=== PATIENT | male | born 1980 | race Caucasian/White ===

== ENCOUNTER 2022-05-16 12:01 | Emergency (ER) | payer MEDICAID ==
[~2022-05-16] VITALS: Ht 160 cm; Wt 72.0 kg
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
--- NOTE | 2022-05-16 12:33 | Diagnostic Imaging Report ---
CLINICAL INDICATION: Patient with pain localized to right hip. EXAM: X-ray of the right hip, AP and frog-leg views. COMPARISON: None. FINDINGS: There is no acute fracture or dislocation. There is hypertrophic bony prominence involving the lateral aspect of the right femoral head/neck junction region. There are small spurs involving the right acetabular region. The remainder of this exam is unremarkable. IMPRESSION: 1: There is no acute fracture or dislocation. 2: There is prominent bony bump involving the lateral aspect of the right femoral head/neck junction region, which may be seen with cam-type defect. 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 Dictated by: Dictated on workstation # [id number]
[2022-05-16 13:35] VITALS: BP 144/83
== END 2022-05-16 13:37 | disposition home or self-care (01) ==
LOC: ER 12:03
DX: M25.551 Pain in right hip (principal); Z28.310 Unvaccinated for COVID-19; W01.0XXA Fall on same level from slipping, tripping and stumbling without subsequent striking against object, initial encounter; Y93.01 Activity, walking, marching and hiking; Y92.510 Bank as the place of occurrence of the external cause
CPT/HCPCS: 73502